=== PATIENT | male | born 1975 | race Caucasian/White ===

== ENCOUNTER 2017-06-24 20:35 | Inpatient (IN) | payer SELFPAY ==
[2017-06-24] MEDS ORDERED: Sodium Chloride 0.9% 1,000 ML IV SCH (22:00)
--- NOTE | 2017-06-24 22:00 | ED PDOC ---
"HPI: Abdomen Time Seen by Provider: 06/24/17 21:23 Chief Complaint (Nursing): GI Problem Chief Complaint (Provider): GI Problem History Per: Patient History/Exam Limitations: no limitations Onset/Duration Of Symptoms: Days (x1) Current Symptoms Are (Timing): Still Present Additional Complaint(s): 42 year old male complains of right-sided lower abdominal pain that radiates across to left side, associated with decreased appetite, 9 episodes of nonbloody , nonbilious vomiting, 3 episodes of nonbloody diarrhea and headache ongoing since 0200 earlier today. Otherwise: (-) fever or chills, (-) shortness of breath, (-) chest pain, (-) joint pain, (-) rash, (-) dysuria or hematuria, (-) recent travel or sick contacts. Patient reports taking Duspatalin (acquired from [facility] as needed for pain) with no relief. Last dose was 2 tablets at 1200. PMD: none provided Past Medical History Reviewed: Historical Data, Nursing Documentation, Vital Signs Vital Signs: Last Vital Signs Temp 100.7 F H 06/26/17 04:06 Pulse 87 06/26/17 04:06 Resp 20 06/26/17 04:06 BP 137/84 06/26/17 04:06 Pulse Ox 96 06/26/17 04:06 - Medical History PMH: No Chronic Diseases - Surgical History Other surgeries: L knee procedure - Family History Family History: States: Unknown Family Hx - Social History Current smoker - smoking cessation education provided: No Alcohol: Social Drugs: Denies - Home Medications Home Medications: Ambulatory Orders Medication Instructions Recorded No Known Home Med [No Known Home 08/30/14 Med] - Allergies Allergies/Adverse Reactions: Allergies Allergy/AdvReac Type Severity Reaction Status Date / Time No Known Allergies Allergy Verified 06/24/17 21:11 Review of Systems ROS Statement: Except As Marked, All Systems Reviewed And Found Negative Constitutional: Negative for: Fever, Chills Cardiovascular: Negative for: Chest Pain Respiratory: Negative for: Shortness of Breath Gastrointestinal: Positive for: Vomiting (NBNB x9), Abdominal Pain (lower bilaterally), Diarrhea (nonbloody x3), Other (decreased appetite) Genitourinary Male: Negative for: Dysuria, Hematuria Musculoskeletal: Negative for: Other (joint pain) Skin: Negative for: Rash Neurological: Positive for: Headache Physical Exam - Reviewed Nursing Documentation Reviewed: Yes Vital Signs Reviewed: Yes - Physical Exam Comments: GENERAL APPEARANCE: Patient is awake, alert, oriented x 3, in no acute distress. Nontoxic appearing. SKIN: Warm, dry; (-) cyanosis. EYES: (-) conjunctival pallor. ENMT: Mucous membranes moist. Airway patent (-) stridor. NECK: Supple, FROM (-) tenderness, (-) stiffness, (-) lymphadenopathy CHEST AND RESPIRATORY: (-) rash, (-) chest wall tenderness. Lungs: (-) rales , (-) rhonchi, (-) wheezes, (-) rub; breath sounds equal bilaterally. HEART AND CARDIOVASCULAR: (-) irregularity; (-) murmur, (-) gallop, (-) rub. ABDOMEN AND GI: Soft; (+) RLQ tenderness with guarding (+) McBurney sign. (+) minimal LLQ tenderness to palpation, (-)Rovsing (-) distention, (-) CVA tenderness bilaterally (-) palpable pulsatile mass. EXTREMITIES: (-) deformity; (-) edema, (-) calf tenderness. (+) distal pulses. NEURO AND PSYCH: Mental status as above. Cranial nerves grossly intact; strength symmetric. Gait steady. - Laboratory Results Result Diagrams: 06/24/17 22:16 06/24/17 22:16 Urine dip results: Positive for: Protein (30). Negative for: Leukocyte Esterase , Blood, Nitrate, Ketones, Glucose, Bilirubin Medical Decision Making Medical Decision Making: Initial Impression: Acute abdominal pain with vomiting and diarrhea. R/O appendicitis Initial Plan: * CMP * Lipase * Urine dipstick * CBC * Bentyl 20mg IM * NS 1,000ml IV per 1,000mls/hr * Pepcid 40mg IVP * Toradol 30mg IVP * Zofran inj 8mg IVP 0100 Labs reviewed and grossly normal. Pending urine sample. [address] reviewed, radiology report follows EXAM: CT Abdomen and Pelvis With Intravenous Contrast CLINICAL HISTORY: 42 years old, male; Pain; Abdominal pain; Flank; Right lower quadrant (rlq); Additional info: Rlq pain, vomiting TECHNIQUE: Axial computed tomography images of the abdomen and pelvis with intravenous contrast. All CT scans at this facility use one or more dose reduction techniques, viz.: automated exposure control; ma/kV adjustment per patient size (including targeted exams where dose is matched to indication; i.e. head); or iterative reconstruction technique. Coronal and sagittal reformatted images were created and reviewed. CONTRAST: 95 mL of omnipaque 300 administered intravenously. COMPARISON: No relevant prior studies available. FINDINGS: Lung bases: There is minimal bibasilar atelectasis. ABDOMEN: Liver: Unremarkable. No mass. Gallbladder and bile ducts: Unremarkable. No calcified stones. No ductal dilation. Pancreas: Unremarkable. No mass. No ductal dilation. Spleen: Unremarkable. No splenomegaly. Adrenals: Unremarkable. No mass. Kidneys and ureters: Unremarkable. No solid mass. No hydronephrosis. Stomach and bowel: The cecum is moderately thick walled with extensive right lower quadrant inflammatory stranding. There is a thickwalled pericecal outpouching containing a fecalith. Differential diagnosis includes acute appendicitis and diverticulitis. No perforation or abscess. PELVIS: Bladder: Unremarkable. No mass. Reproductive: Unremarkable as visualized. ABDOMEN and PELVIS: CARO MCGILL | Final Radiology Report CONFIDENTIALITY STATEMENT This report is intended only for use by the referring physician, and only in accordance with law. If you received this in error, call [phone]. Page 2 of 2 Intraperitoneal space: There is a small amount of free pelvic fluid present. No free air. No significant fluid collection. Bones/joints: No acute fracture. No dislocation. Soft tissues: There is a fat-containing umbilical hernia. Vasculature: Unremarkable. No abdominal aortic aneurysm. Lymph nodes: Multiple mildly enlarged right lower quadrant mesenteric lymph nodes probably reactive adenopathy measuring up to 10 mm. IMPRESSION: Moderately thickwalled cecum with focal outpouching containing a fecalith and adjacent mesenteric inflammatory stranding. Diagnostic considerations include acute appendicitis and diverticulitis. No perforation or abscess. Small pelvic free fluid. Right lower quadrant mesenteric adenopathy most likely reactive. Thank you for allowing us to participate in the care of your patient. Dictated and Authenticated by: Wanda House MD 06/25/2017 5:22 AM Eastern Time ([place] & [place]) On re-evaluation, patient with persistent RLQ pain. Reports resolution of nausea , vomiting, and diarrhea. Surgical consult placed. 0535 Spoke with development vice president, Dr Key, who will evaluate patient in ED. 07:00 Transfer of care to Dr. Dukes pending surgical evaluation and further evaluation of probable appendicitis. Scribe Attestation: Documented by Chely Leslie, acting as a scribe for Aziza Bloom PA-C. Provider Scribe Attestation: All medical record entries made by the Scribe were at my direction and personally dictated by me. I have reviewed the chart and agree that the record accurately reflects my personal performance of the history, physical exam, medical decision making, and the department course for this patient. I have also personally directed, reviewed, and agree with the discharge instructions and disposition. Disposition - Clinical Impression Clinical Impression: Abdominal pain, Nausea and vomiting, Diarrhea - Patient ED Disposition Is Patient to be Admitted: Transfer of Care (Dr Dukes at 0700) - Disposition Disposition: Transfer of Care (Dr Dukes at 0700) Disposition Time: 07:00 Condition: FAIR - POA Present On Arrival: None Results - Lab Results Lab Results: 06/24/17 06/24/17 22:16 22:16 WBC 9.5 RBC 4.86 Hgb 14.3 Hct 42.2 MCV 86.8 MCH 29.5 MCHC 34.0 RDW 14.6 H Plt Count 186 MPV 8.7 Neut % (Auto) 76.0 H Lymph % (Auto) 17.0 L [place] % (Auto) 6.7 Eos % (Auto) 0.1 Baso % (Auto) 0.2 Neut # (Auto) 7.2 H Lymph # (Auto) 1.6 [place] # (Auto) 0.6 Eos # (Auto) 0.0 Baso # (Auto) 0.0 Sodium 141 Potassium 4.2 Chloride 98 Carbon Dioxide 27 Anion Gap 20 BUN 14 Creatinine 1.0 Est GFR ( Amer) > 60 Est GFR (Non-Af Amer) > 60 Random Glucose 108 Calcium 9.6 Total Bilirubin 1.2 AST 33 ALT 45 Alkaline Phosphatase 87 Total Protein 8.8 H Albumin 4.5 Globulin 4.4 H Albumin/Globulin Ratio 1.0 Lipase 42"
[2017-06-24 22:42] LABS: BASO % 0.2 % (0.0-2.0); EOS % 0.1 % (0.0-4.0); HEMOGLOBIN 14.3 g/dL (12.0-18.0); LYMPH # 1.6 K/uL (1.0-4.3); MEAN CELL VOLUME 86.8 fl (80.0-94.0); MEAN CORPUSCULAR HEMOGLOBIN 29.5 pg (27.0-31.0); MEAN PLATELET VOLUME 8.7 fl (7.2-11.7); MONO # 0.6 K/uL (0.0-0.8); MONO % 6.7 % (0.0-10.0); NEUT # 7.2 K/uL (1.8-7.0); RBC 4.86 Mil/uL (4.40-5.90); RED CELL DISTRIBUTION WIDTH 14.6 % (11.5-14.5); WHITE BLOOD COUNT 9.5 K/uL (4.8-10.8)
[2017-06-24 22:52] LABS: ALBUMIN 4.5 g/dL (3.5-5.0); ALT/SGPT 45 U/L (21-72); AST/SGOT 33 U/L (17-59); BLOOD UREA NITROGEN 14 mg/dl (9-20); CALCIUM 9.6 mg/dL (8.4-10.2); GFR AFRICAN-AMERICAN > 60; GFR NON-AFRICAN AMERICAN > 60; LIPASE 42 U/L (23-300)
[2017-06-24] MEDS ORDERED: Iohexol 240 (50 ml) PO STA (23:07)
[2017-06-25] MEDS ORDERED: Iohexol 240 (50 ml) ONE (01:10)
[2017-06-25] MEDS ORDERED: Iohexol 300 100 ML IJ ONE (02:53)
[2017-06-25] MEDS ORDERED: Sodium Chloride 0.9% 100 ML ONE (02:53)
--- NOTE | 2017-06-25 05:23 | CT ---
EXAM: CT Abdomen and Pelvis With Intravenous Contrast CLINICAL HISTORY: 42 years old, male; Pain; Abdominal pain; Flank; Right lower quadrant (rlq); Additional info: Rlq pain, vomiting TECHNIQUE: Axial computed tomography images of the abdomen and pelvis with intravenous contrast. All CT scans at this facility use one or more dose reduction techniques, viz.: automated exposure control; ma/kV adjustment per patient size (including targeted exams where dose is matched to indication; i.e. head); or iterative reconstruction technique. Coronal and sagittal reformatted images were created and reviewed. CONTRAST: 95 mL of omnipaque 300 administered intravenously. COMPARISON: No relevant prior studies available. FINDINGS: Lung bases: There is minimal bibasilar atelectasis. ABDOMEN: Liver: Unremarkable. No mass. Gallbladder and bile ducts: Unremarkable. No calcified stones. No ductal dilation. Pancreas: Unremarkable. No mass. No ductal dilation. Spleen: Unremarkable. No splenomegaly. Adrenals: Unremarkable. No mass. Kidneys and ureters: Unremarkable. No solid mass. No hydronephrosis. Stomach and bowel: The cecum is moderately thick walled with extensive right lower quadrant inflammatory stranding. There is a thickwalled pericecal outpouching containing a fecalith. Differential diagnosis includes acute appendicitis and diverticulitis. No perforation or abscess. PELVIS: Bladder: Unremarkable. No mass. Reproductive: Unremarkable as visualized. ABDOMEN and PELVIS: Intraperitoneal space: There is a small amount of free pelvic fluid present. No free air. No significant fluid collection. Bones/joints: No acute fracture. No dislocation. Soft tissues: There is a fat-containing umbilical hernia. Vasculature: Unremarkable. No abdominal aortic aneurysm. Lymph nodes: Multiple mildly enlarged right lower quadrant mesenteric lymph nodes probably reactive adenopathy measuring up to 10 mm. IMPRESSION: Moderately thickwalled cecum with focal outpouching containing a fecalith and adjacent mesenteric inflammatory stranding. Diagnostic considerations include acute appendicitis and diverticulitis. No perforation or abscess. Small pelvic free fluid. Right lower quadrant mesenteric adenopathy most likely reactive.
--- NOTE | 2017-06-25 05:45 | CP.PCM.CON ---
History of Present Illness - History of Present Illness History of Present Illness: General Surgery Consult Note for Dr. Mayer Reason for consult: RLQ pain, Acute appendicitis 42 M with no significant PMH presents to [facility] for complaint of RLQ abdominal pain. Patient was seen and evaluated in the ED. Patient states that pain began 1 day ago. He reports sudden onset and states pain had gotten progressively worse. In that same time frame, patient has had numerous episodes of NBNB vomiting and three episodes of nonbloody diarrhea. He also reports anorexia. Patient states that he has never experienced these symptom before. He rates pain as severe. he describes pain as constant and sharp located in RLQ with radiation to the left side. Eating/drinking exacerbates symptoms while nothing alleviates it. Patient reports drinkning Pedialyte and taking Duspatalin ( acquired [facility] as needed for pain) with no relief. Denies fever/chills, cp, SOB, palpitations, constipation, incontinence, urinary symptoms. PMH: Denies Meds: MVM Allergy: NKDA PSH: Left knee surgery FH: non-contributory Social: denies tobacco/illicit drug use, drinks EtOH on the weekends Review of Systems - Review of Systems All systems: reviewed and no additional remarkable complaints except (as per HPI ) Past Patient History - Past Social History Alcohol: Social Drugs: Denies - PSYCHIATRIC Hx Substance Use: No Meds Allergies/Adverse Reactions: Allergies Allergy/AdvReac Type Severity Reaction Status Date / Time No Known Allergies Allergy Verified 06/24/17 21:11 Physical Exam - Constitutional Appears: No Acute Distress - Head Exam Head Exam: ATRAUMATIC, NORMOCEPHALIC - Eye Exam Eye Exam: EOMI, Normal appearance Pupil Exam: PERRL - ENT Exam ENT Exam: Mucous Membranes Moist - Respiratory Exam Respiratory Exam: NORMAL BREATHING PATTERN - Cardiovascular Exam Cardiovascular Exam: REGULAR RHYTHM - GI/Abdominal Exam GI & Abdominal Exam: Normal Bowel Sounds, Soft, Tenderness (RLQ). absent: Distended, Firm, Guarding, Rebound, Rigid Additional comments: (+) McBurney's point (-) psoas, obturator, rovsing sign - Extremities Exam Extremities exam: Positive for: normal capillary refill, pedal pulses present. Negative for: calf tenderness - Back Exam Back exam: absent: CVA tenderness (L), CVA tenderness (R) - Neurological Exam Neurological exam: Alert, Oriented x3 - Psychiatric Exam Psychiatric exam: Normal Affect, Normal Mood - Skin Skin Exam: Dry, Intact, Normal Color, Warm Results - Vital Signs Recent Vital Signs: Last Vital Signs Temp 99.3 F 06/24/17 22:02 Pulse 89 06/24/17 22:02 Resp 18 06/24/17 22:02 BP 128/90 06/24/17 22:02 Pulse Ox 99 06/24/17 22:02 - Labs Result Diagrams: 06/24/17 22:16 06/24/17 22:16 Labs: Laboratory Results - last 24 hr 06/24/17 06/24/17 22:16 22:16 WBC 9.5 RBC 4.86 Hgb 14.3 Hct 42.2 MCV 86.8 MCH 29.5 MCHC 34.0 RDW 14.6 H Plt Count 186 MPV 8.7 Neut % (Auto) 76.0 H Lymph % (Auto) 17.0 L [place] % (Auto) 6.7 Eos % (Auto) 0.1 Baso % (Auto) 0.2 Neut # (Auto) 7.2 H Lymph # (Auto) 1.6 [place] # (Auto) 0.6 Eos # (Auto) 0.0 Baso # (Auto) 0.0 Sodium 141 Potassium 4.2 Chloride 98 Carbon Dioxide 27 Anion Gap 20 BUN 14 Creatinine 1.0 Est GFR ( Amer) > 60 Est GFR (Non-Af Amer) > 60 Random Glucose 108 Calcium 9.6 Total Bilirubin 1.2 AST 33 ALT 45 Alkaline Phosphatase 87 Total Protein 8.8 H Albumin 4.5 Globulin 4.4 H Albumin/Globulin Ratio 1.0 Lipase 42 Assessment & Plan - Assessment and Plan (Free Text) Assessment: 42 M with acute appendicitis; Ct findings of inflammation near cecum with fecalith and regional adenopathy, appendicitis vs diverticulitis Plan: -NPO -IV fluids -IV antibiotics -Analgesics/Anti-emetics PRN -I's & O's -Possible OR for laparoscopic Appendectomy -Will discuss with Dr. Leyla Key PGY1
[2017-06-25] MEDS: Lactated Ringer's 1,000 ML IV SCH ×4 (06:51→22:45)
[2017-06-25] MEDS: Piperacillin/Tazobact 4.5 GM in Sodium Chloride 0.9% 100 ML IVPB SCH ×3 (08:18→22:28)
[2017-06-25] MEDS ORDERED: Propofol 10 mg/ml Inj (20 ML) ONE (13:23)
[2017-06-25] MEDS ORDERED: Succinylcholine 200 mg/10 ml Inj IV ONE (13:24)
[2017-06-25] MEDS ORDERED: Midazolam 2 MG/2 ML VIAL ONE (13:24)
[2017-06-25] MEDS ORDERED: Lidocaine 2% Jelly (5 ml) TOP ONE (13:24)
[2017-06-25] MEDS ORDERED: Lidocaine 2% MPF (5 ml) Inj ONE (13:24)
[2017-06-25] MEDS ORDERED: Sevoflurane - Inhalation Anesthetic Liq (250 ml) ONE (13:35)
[2017-06-25 14:21] LABS: INR 1.5 (0.9-1.2); PARTIAL THROMBOPLASTIN TIME 28.4 Seconds (25.6-37.1); PROTHROMBIN TIME 17.1 Seconds (9.8-13.1)
--- NOTE | 2017-06-25 14:47 | RAD ---
HISTORY: pre op COMPARISON: No prior. FINDINGS: LUNGS: The lungs are well inflated and clear. PLEURA: No significant pleural effusion identified, no pneumothorax apparent. CARDIOVASCULAR: Normal. OSSEOUS STRUCTURES: No significant abnormalities. VISUALIZED UPPER ABDOMEN: Normal. OTHER FINDINGS: None. IMPRESSION: No active pulmonary disease.
[2017-06-25] MEDS ORDERED: Lactated Ringer's 1,000 ML IV ONE ×2 (15:05→16:00)
[2017-06-25] MEDS ORDERED: Bupivacaine 0.5% Inj(30mL) ONE (15:08)
[2017-06-25] MEDS ORDERED: Lidocaine 2% Inj (20ml) ONE (15:08)
[2017-06-25] MEDS ORDERED: Lidocaine 1% w Epi 1:100,000 Inj ONE (15:08)
[2017-06-25] MEDS ORDERED: Rocuronium 10 mg/ml (5 ml) ONE (15:13)
[2017-06-25] MEDS ORDERED: Neostigmine 1:1000 (1 mg/ml) Inj ONE (16:38)
--- NOTE | 2017-06-25 16:55 | PCM.SURG1 ---
Surgeon's Initial Post Op Note - Surgeon's Notes Surgeon: Dr. Mayer Checking Department Supervisor: Dr. Thornton PGY2, Dr. Key PGY1 Pre-Operative Diagnosis: Acute Appendicitis Operative Findings: See Operative dicatation Post-Operative Diagnosis: Acute appendicitis Operation Performed: Laparoscopic Appendectomy Specimen/Specimens Removed: Appendix Estimated Blood Loss: EBL {In ML}: 10 Blood Products Given: N/A Drains Used: Paul Post-Op Condition: Good Date of Surgery/Procedure: 06/25/17 Time of Surgery/Procedure: 16:54
[2017-06-25] MEDS ORDERED: Lactated Ringer's 500 ML IV ONE (17:05)
[2017-06-25] MEDS ORDERED: HYDROmorphone 0.5 mg/0.5 ml ISec IVP PRN (17:09)
[2017-06-25] MEDS ORDERED: HYDROmorphone 0.5 mg/0.5 ml ISec ONE (17:16)
--- NOTE | 2017-06-26 00:42 | CP.PCM.PN ---
Subjective - Date & Time of Evaluation Date of Evaluation: 06/26/17 Time of Evaluation: 00:38 - Subjective Subjective: General Surgery Progress Note for Dr. Riggs This 42M was seen and examined this AM at bedside. No acute events since OR. Patient has voided. Denies BM or Flatus. Denies SOB or chest pain, however complains of abdominal pain. Objective - Vital Signs/Intake and Output Vital Signs (last 24 hours): Temp Pulse Resp BP Pulse Ox 100.2 F H 77 20 121/72 97 06/25/17 23:55 06/25/17 23:55 06/25/17 23:55 06/25/17 23:55 06/25/17 23:55 Intake and Output: 06/25/17 06/26/17 18:59 06:59 Intake Total 1650 Output Total 60 Balance 1590 - Medications Medications: Current Medications Lactated Ringer's (Lactated Ringer's) 1,000 mls @ 125 mls/hr IV .Q8H ANDREA Last Admin: 06/25/17 17:57 Dose: 50 mls Piperacillin Sod/Tazobactam (Sod 4.5 gm/ Sodium Chloride) 100 mls @ 100 mls/hr IVPB Q6 ANDREA PRN Reason: Protocol Last Admin: 06/25/17 22:28 Dose: 100 mls/hr Morphine Sulfate (Morphine) 2 mg IVP Q4 PRN PRN Reason: Pain, severe (8-10) Last Admin: 06/25/17 22:04 Dose: 2 mg Pantoprazole Sodium (Protonix Inj) 40 mg IVP DAILY [facility] Last Admin: 06/25/17 08:16 Dose: 40 mg - Labs Labs: 06/24/17 22:16 06/24/17 22:16 PT 17.1 Seconds (9.8-13.1) H 06/25/17 13:50 INR 1.5 (0.9-1.2) H 06/25/17 13:50 APTT 28.4 Seconds (25.6-37.1) 06/25/17 13:50 - Constitutional Appears: Non-toxic, No Acute Distress - Head Exam Head Exam: ATRAUMATIC, NORMOCEPHALIC - Eye Exam Eye Exam: EOMI - ENT Exam ENT Exam: Mucous Membranes Moist - Respiratory Exam Respiratory Exam: NORMAL BREATHING PATTERN - Cardiovascular Exam Cardiovascular Exam: +S1, +S2 - GI/Abdominal Exam GI & Abdominal Exam: Soft, Tenderness. absent: Distended - Neurological Exam Neurological Exam: Alert, Awake - Psychiatric Exam Psychiatric exam: Normal Affect, Normal Mood - Skin Skin Exam: Dry, Intact Assessment and Plan - Assessment and Plan (Free Text) Assessment: 42M POD#1 s/p laparoscopic appendectomy F/U CBC Advance diet as tolerated and followup tolerance Serial Abdominal exams ABX Pain control D/W Dr. Leyla Thornton PGY2
[2017-06-26] MEDS: Piperacillin/Tazobact 4.5 GM in Sodium Chloride 0.9% 100 ML IVPB SCH ×2 (03:55→09:10)
[2017-06-26] MEDS: Lactated Ringer's 1,000 ML IV SCH ×2 (03:59→08:47)
[2017-06-26 07:36] LABS: LYMPH # 0.7 K/uL (1.0-4.3); LYMPH % 9.5 % (20.0-40.0); MEAN CELL VOLUME 86.9 fl (80.0-94.0); MEAN CORPUSCULAR HEMOGLOBIN 29.2 pg (27.0-31.0); MEAN CORPUSCULAR HGB CONC 33.7 g/dL (33.0-37.0); MEAN PLATELET VOLUME 8.8 fl (7.2-11.7); MONO # 0.6 K/uL (0.0-0.8); MONO % 7.9 % (0.0-10.0); NEUT # 6.2 K/uL (1.8-7.0); NEUT % 82.6 % (50.0-75.0); PLATELET COUNT 187 K/uL (130-400); RBC 4.45 Mil/uL (4.40-5.90); RED CELL DISTRIBUTION WIDTH 14.6 % (11.5-14.5); WHITE BLOOD COUNT 7.5 K/uL (4.8-10.8)
[2017-06-26] MEDS ORDERED: Oxycodone/Acetaminophen 5/325 mg Tab PO PRN (09:16)
[2017-06-26 10:59] LABS: BANDS 3 % (0-2); LYMPHOCYTE 9 % (20-50); MONOCYTE 9 % (0-10); NEUTROPHIL 78 % (42-75); REACTIVE LYMPHOCYTES 1 % (0-0); TOTAL CELLS COUNTED 100
[2017-06-26 11:00] LABS: PLATELET ESTIMATE NORMAL (NORMAL)
[2017-06-27] MEDS ORDERED: Simethicone 80 mg Chewtab PO PRN (06:20)
--- NOTE | 2017-06-27 07:56 | CP.PCM.PN ---
Subjective - Date & Time of Evaluation Date of Evaluation: 06/27/17 Time of Evaluation: 07:40 - Subjective Subjective: General Surgery Progress Note for Dr. Mayer 42 year old male seen and examined this morning. Patient seen resting comfortably in bed, in NAD. Able to ambulate without issues. Tolerating diet. Denies SOB and chest pains Objective - Vital Signs/Intake and Output Vital Signs (last 24 hours): Temp Pulse Resp BP Pulse Ox 98.4 F 90 19 138/87 97 06/27/17 04:00 06/27/17 04:00 06/27/17 04:00 06/27/17 04:00 06/27/17 04:00 Intake and Output: 06/27/17 06/27/17 06:59 18:59 Intake Total 1650 50 Output Total 330 20 Balance 1320 30 - Medications Medications: Current Medications Acetaminophen (Tylenol 325mg Tab) 650 mg PO Q6 PRN PRN Reason: Temperature Last Admin: 06/26/17 11:46 Dose: 650 mg Oxycodone/Acetaminophen (Percocet 5/325 Mg Tab) 1 tab PO Q4 PRN PRN Reason: Pain, severe (8-10) Stop: 06/29/17 09:17 Last Admin: 06/26/17 22:23 Dose: 1 tab Pantoprazole Sodium (Protonix Inj) 40 mg IVP DAILY ANDREA Last Admin: 06/26/17 08:46 Dose: 40 mg Simethicone (Mylicon Chew Tab) 80 mg PO TID PRN PRN Reason: Flatulence Last Admin: 06/27/17 06:39 Dose: 80 mg - Labs Labs: 06/26/17 06:40 06/24/17 22:16 PT 17.1 Seconds (9.8-13.1) H 06/25/17 13:50 INR 1.5 (0.9-1.2) H 06/25/17 13:50 APTT 28.4 Seconds (25.6-37.1) 06/25/17 13:50 - Constitutional Appears: Well, Non-toxic, No Acute Distress - Head Exam Head Exam: NORMAL INSPECTION - ENT Exam ENT Exam: Mucous Membranes Moist - Respiratory Exam Respiratory Exam: NORMAL BREATHING PATTERN - Cardiovascular Exam Cardiovascular Exam: +S1, +S2 - GI/Abdominal Exam GI & Abdominal Exam: Soft, Tenderness - Neurological Exam Neurological Exam: Alert, Awake - Psychiatric Exam Psychiatric exam: Normal Affect, Normal Mood - Skin Skin Exam: Dry, Intact Assessment and Plan - Assessment and Plan (Free Text) Assessment: 42M POD#2 s/p laparoscopic appendectomy Plan: f/u CBC c/w regular diet Serial Abdominal exams Pain control further recommendations per Dr. Mayer
[2017-06-27 08:13] VITALS: BP 125/82; PULSE 77; RESP 20; TEMP 99.4; O2SAT 99
--- NOTE | 2017-06-27 09:10 | CARD ---
APPROVED REPORT EKG Measurement Heart [id number] <Conclusion> Normal sinus rhythm Normal ECG
--- NOTE | 2017-06-27 15:38 | CP.PCM.DIS ---
Provider - Provider Date of Admission: 06/25/17 07:38 Attending physician: Stephon Mayer MD Time Spent in preparation of Discharge (in minutes): 45 Diagnosis - Discharge Diagnosis (1) Acute appendicitis Status: Acute Hospital Course - Lab Results Lab Results: Most Recent Lab Values WBC 7.5 K/uL (4.8-10.8) 06/26/17 06:40 RBC 4.45 Mil/uL (4.40-5.90) 06/26/17 06:40 Hgb 13.0 g/dL (12.0-18.0) 06/26/17 06:40 Hct 38.7 % (35.0-51.0) 06/26/17 06:40 MCV 86.9 fl (80.0-94.0) 06/26/17 06:40 MCH 29.2 pg (27.0-31.0) 06/26/17 06:40 MCHC 33.7 g/dL (33.0-37.0) 06/26/17 06:40 RDW 14.6 % (11.5-14.5) H 06/26/17 06:40 Plt Count 187 K/uL (130-400) 06/26/17 06:40 MPV 8.8 fl (7.2-11.7) 06/26/17 06:40 Neut % (Auto) 82.6 % (50.0-75.0) H 06/26/17 06:40 Lymph % (Auto) 9.5 % (20.0-40.0) L 06/26/17 06:40 Chester % (Auto) 7.9 % (0.0-10.0) 06/26/17 06:40 Eos % (Auto) 0.0 % (0.0-4.0) 06/26/17 06:40 Baso % (Auto) 0.0 % (0.0-2.0) 06/26/17 06:40 Neut # (Auto) 6.2 K/uL (1.8-7.0) 06/26/17 06:40 Lymph # (Auto) 0.7 K/uL (1.0-4.3) L 06/26/17 06:40 Chester # (Auto) 0.6 K/uL (0.0-0.8) 06/26/17 06:40 Eos # (Auto) 0.0 K/uL (0.0-0.7) 06/26/17 06:40 Baso # (Auto) 0.0 K/uL (0.0-0.2) 06/26/17 06:40 Neutrophils % (Manual) 78 % (42-75) H 06/26/17 06:40 Band Neutrophils % 3 % (0-2) H 06/26/17 06:40 Lymphocytes % (Manual) 9 % (20-50) L 06/26/17 06:40 Reactive Lymphs % 1 % (0-0) H 06/26/17 06:40 Monocytes % (Manual) 9 % (0-10) 06/26/17 06:40 Platelet Estimate Normal (NORMAL) 06/26/17 06:40 RBC Morphology Normal (NORMAL) 06/26/17 06:40 PT 17.1 Seconds (9.8-13.1) H 06/25/17 13:50 INR 1.5 (0.9-1.2) H 06/25/17 13:50 APTT 28.4 Seconds (25.6-37.1) 06/25/17 13:50 Sodium 141 mmol/l (132-148) 06/24/17 22:16 Potassium 4.2 MMOL/L (3.6-5.0) 06/24/17 22:16 Chloride 98 mmol/L (98-107) 06/24/17 22:16 Carbon Dioxide 27 mmol/L (22-30) 06/24/17 22:16 Anion Gap 20 (10-20) 06/24/17 22:16 BUN 14 mg/dl (9-20) 06/24/17 22:16 Creatinine 1.0 mg/dl (0.8-1.5) 06/24/17 22:16 Est GFR ( Amer) > 60 06/24/17 22:16 Est GFR (Non-Af Amer) > 60 06/24/17 22:16 Random Glucose 108 mg/dL (75-110) 06/24/17 22:16 Calcium 9.6 mg/dL (8.4-10.2) 06/24/17 22:16 Total Bilirubin 1.2 mg/dl (0.2-1.3) 04/27/18 22:16 AST 33 U/L (17-59) 06/24/17 22:16 ALT 45 U/L (21-72) 06/24/17 22:16 Alkaline Phosphatase 87 U/L (38-126) 06/24/17 22:16 Total Protein 8.8 G/DL (6.3-8.2) H 06/24/17 22:16 Albumin 4.5 g/dL (3.5-5.0) 06/24/17 22:16 Globulin 4.4 gm/dL (2.2-3.9) H 06/24/17 22:16 Albumin/Globulin Ratio 1.0 (1.0-2.1) 06/24/17 22:16 Lipase 42 U/L (23-300) 06/24/17 22:16 - Hospital Course Hospital Course: 42 M with no significant PMH presents to [facility] for complaint of RLQ abdominal pain. Patient was seen and evaluated in the ED. Patient states that pain began 1 day ago. He reports sudden onset and states pain had gotten progressively worse. In that same time frame, patient has had numerous episodes of NBNB vomiting and three episodes of nonbloody diarrhea. He also reports anorexia. Patient states that he has never experienced these symptom before. He rates pain as severe. he describes pain as constant and sharp located in RLQ with radiation to the left side. Eating/drinking exacerbates symptoms while nothing alleviates it. Patient reports drinkning Pedialyte and taking Duspatalin ( acquired from [facility] as needed for pain) with no relief. Denies fever/chills, cp, SOB, palpitations, constipation, incontinence, urinary symptoms. Later that same day, patient was taken for laparoscopic appendectomy in the OR. Patient tolerated the procedure well without any complications. Latrell drain was placed. Over the next two days, patient was tolerating reg diet. He was urinating, having bms and passing gas. Patient's pain had decreased and remained controlled. He was without fever/chills, nausea/vomiting, or diarrhea. On 06/27, it was determined that patient was medically stable for discharge to home by . Patient was instructed to follow up as outpatient in the office within 1-2 weeks where latrell drain would be removed. No heavy lifting for a few weeks. Keep surgical areas clean and dry. Patient was given prescription for 5 day supply of Cipro/flagyl. (This is a summary of the hospital course. Please refer to EMR for more details. ) - Date & Time of H&P Date of H&P: 06/25/17 Time of H&P: 05:45 Discharge Exam - Head Exam Head Exam: ATRAUMATIC, NORMAL INSPECTION, NORMOCEPHALIC - Eye Exam Eye Exam: EOMI, Normal appearance Pupil Exam: PERRL - ENT Exam ENT Exam: Mucous Membranes Moist - Respiratory Exam Respiratory Exam: NORMAL BREATHING PATTERN - Cardiovascular Exam Cardiovascular Exam: REGULAR RHYTHM - GI/Abdominal Exam GI & Abdominal Exam: Normal Bowel Sounds, Soft, Tenderness (mild). absent: Distended, Firm, Guarding, Hernia, Rebound, Rigid - Extremities Exam Extremities exam: normal capillary refill, pedal pulses present - Back Exam Back exam: absent: CVA tenderness (L), CVA tenderness (R) - Neurological Exam Neurological exam: Alert, Oriented x3 - Psychiatric Exam Psychiatric exam: Normal Affect, Normal Mood - Skin Skin Exam: Dry, Intact, Normal Color, Warm Discharge Plan - Discharge Medications Prescriptions: Ciprofloxacin [Cipro] 500 mg PO Q12H #10 tab Lactobacillus Acidophilus [Acidophilus Lactobacillus] 1 cap PO BID #10 capsule Metronidazole [Flagyl] 500 mg PO Q8H #15 tablet - Follow Up Plan Condition: STABLE Disposition: HOME/ ROUTINE Instructions: Appendectomy, Laparoscopic Surgery (DC) Additional Instructions: follow up with surgeon 1 week Referrals: Stephon Mayer MD [Staff Provider] -
--- NOTE | 2017-07-08 08:43 | OP ---
PROCEDURE DATE: 06/25/2017 PREOPERATIVE DIAGNOSIS: Acute appendicitis. POSTOPERATIVE DIAGNOSIS: Acute appendicitis. PROCEDURE: Laparoscopic appendectomy. SURGEON: Stephon Mayer MD TYPE OF ANESTHESIA: General endotracheal. DESCRIPTION OF PROCEDURE: The patient was brought to the operating room, placed on operating table in supine position. After induction general endotracheal anesthesia, Venodyne boots were placed in both legs. Prophylactic antibiotics were given. The entire abdomen was prepped and draped in the usual sterile fashion. A 15 blade was used to perform an infraumbilical incision, which was then brought down to subcutaneous tissue using Bovie electrocautery. The linea alba was incised and the peritoneal cavity was accessed. Herve trocar was inserted and obturator was removed and the port was connected with CO2 tank generating a pneumoperitoneum with 15 mmHg. The patient's position was changed Trendelenburg over the left side and exposing the right lower quadrant. A 10 mm 30 degree laparoscopic video camera was inserted and the abdomen inspected. The appendix appeared to be enlarged and inflamed and retrocecal. Two 5 mm ports were inserted in the lower abdomen in the suprapubic and left lower quadrant areas 5 mm LigaSure was inserted in the was grasped and free from its attachments in the retrocecal region and broadened to full view. The mesoappendix was secured with 5 mm LigaSure, 45 Endo-STEPHANE blue was base of the appendix and was placed in the Endo bag, removed from the operating field and pathology appropriately labelled section. The abdomen was irrigated with copious amounts of warm normal saline and a #15 BARBARA was inserted through suprapubic ports and advanced in the retrocecal area along the right pericolic gutter and secured with skin using 2-0 silk stitch. The infraumbilical port was removed and fascia was closed with an interrupted 0 Vicryl stitches. The integrity of the fascial closure was checked by inserting a 5 mm 30 degree laparoscopic video camera through the left lower quadrant port. It was also confirmed that there was no evidence of bleeding or bowel or omental entrapment. The remaining 5 mm port was removed. All skin incisions were closed with 4-0 continuous subcuticular Monocryl and Dermabond. At the end of the surgery, the counts of instruments, gauze, and needles counts were correct x2. The patient tolerated the surgery well and was transferred in stable condition to recovery room. Stephon Mayer MD Elsi Arndt
== END 2017-06-27 16:12 | disposition home or self-care (01) | DRG 343 ==
LOC: H.ER 20:35 → H.ERHOLD 06-25 07:38 → H.MEDSURG1 06-25 09:29
PROVIDERS: ADMIT Specialist; ATTEND Specialist
PROC: 0DTJ4ZZ Resection of Appendix, Percutaneous Endoscopic Approach (ICD-10-PCS; principal; 2017-06-25 15:00)
DX: K35.80 Unspecified acute appendicitis (principal); K56.41 Fecal impaction